=== PATIENT | male | born 2000 | race Caucasian/White ===

== ENCOUNTER 2024-07-22 16:30 | Inpatient (IN) ==
[2024-07-22] MEDS ORDERED: ROBAXIN PO PRN (17:02)
[2024-07-22] MEDS ORDERED: NS 250 ML IV 25 ML IV PRN (17:02)
[2024-07-22 17:35] LABS: BASOPHILS % (AUTO) 0.7 % (0.2-1.0); EOSINOPHILS # (AUTO) 0.2 x10^3/uL (0.0-0.2); EOSINOPHILS % (AUTO) 2.3 % (0.9-2.9); HEMATOCRIT 37.8 % (42.0-54.0); HEMOGLOBIN 12.5 g/dL (13.5-18.0); LYMPHOCYTES # (AUTO) 2.3 X10^3/uL (1.3-2.9); LYMPHOCYTES % (AUTO) 31.2 % (21.0-51.0); MEAN CORPUSCULAR HEMOGLOBIN 27.6 pg (27.0-34.0); MEAN CORPUSCULAR HGB CONC 33.1 g/dL (33.0-35.0); MEAN CORPUSCULAR VOLUME 83.4 fL (80.0-100.0); MEAN PLATELET VOLUME 6.5 fL (7.4-11.0); MONOCYTES # (AUTO) 0.7 x10^3/uL (0.3-0.8); MONOCYTES % (AUTO) 10.3 % (0.0-13.0); NEUTROPHILS % (AUTO) 55.5 % (42.0-75.0); PLATELET COUNT 276 X10^3/uL (150.0-450.0); RED BLOOD COUNT 4.54 X10^6/uL (4.7-6.0); RED CELL DISTRIBUTION WIDTH 14.8 % (11.6-16.5); WHITE BLOOD COUNT 7.3 X10^3/uL (3.6-10.0)
[2024-07-22 17:46] LABS: ALANINE AMINOTRANSFERASE 16 Units/L (12-78); ALBUMIN 3.5 g/dL (3.4-5.0); ALKALINE PHOSPHATASE 69 Units/L (46-116); ASPARTATE AMINO TRANSFERASE 16 Units/L (15-37); BLOOD UREA NITROGEN 9 mg/dL (7-18); CALCIUM 8.6 mg/dL (8.5-10.1); CARBON DIOXIDE 37.3 mmol/L (21-32); CHLORIDE 100 mmol/L (98-107); CREATININE 0.99 mg/dL (0.70-1.30); GLUCOSE 72 mg/dL (65-99); POTASSIUM 3.8 mmol/L (3.5-5.1); SODIUM 137 mmol/L (136-145); TOTAL PROTEIN 7.1 g/dL (6.4-8.2); eGFR NON BLACK RACES > 60 (>60)
[2024-07-22 18:16] VITALS: BMI 20.5
[2024-07-22] MEDS: ZOSYN VIAL 3.375 GRAMS 3.375 G in NS 100 ML IV 100 ML IV SCH (18:20)
[2024-07-22] MEDS: ZYVOX 600MG IV 600 MG/300 ML BAG IV SCH (20:30)
[2024-07-23] MEDS: NOZIN NASAL SANITIZER TP ONE (05:32)
[2024-07-23] MEDS: HIBICLENS WASH EXT ONE (05:32)
[2024-07-23 05:54] LABS: BASOPHILS # (AUTO) 0.1 X10^3/uL (0.0-0.1); BASOPHILS % (AUTO) 0.7 % (0.2-1.0); EOSINOPHILS # (AUTO) 0.2 x10^3/uL (0.0-0.2); EOSINOPHILS % (AUTO) 2.3 % (0.9-2.9); HEMATOCRIT 35.6 % (42.0-54.0); HEMOGLOBIN 11.8 g/dL (13.5-18.0); LYMPHOCYTES # (AUTO) 2.7 X10^3/uL (1.3-2.9); LYMPHOCYTES % (AUTO) 33.7 % (21.0-51.0); MEAN CORPUSCULAR HEMOGLOBIN 27.5 pg (27.0-34.0); MEAN CORPUSCULAR HGB CONC 33.2 g/dL (33.0-35.0); MEAN CORPUSCULAR VOLUME 82.7 fL (80.0-100.0); MEAN PLATELET VOLUME 7.1 fL (7.4-11.0); MONOCYTES # (AUTO) 0.8 x10^3/uL (0.3-0.8); MONOCYTES % (AUTO) 10.7 % (0.0-13.0); NEUTROPHILS # (AUTO) 4.1 x10^3/uL (2.2-4.8); NEUTROPHILS % (AUTO) 52.6 % (42.0-75.0); PLATELET COUNT 257 X10^3/uL (150.0-450.0); RED BLOOD COUNT 4.31 X10^6/uL (4.7-6.0); RED CELL DISTRIBUTION WIDTH 14.6 % (11.6-16.5); WHITE BLOOD COUNT 7.9 X10^3/uL (3.6-10.0)
[2024-07-23 06:15] LABS: ALANINE AMINOTRANSFERASE 22 Units/L (12-78); ALBUMIN 3.1 g/dL (3.4-5.0); ALKALINE PHOSPHATASE 60 Units/L (46-116); ASPARTATE AMINO TRANSFERASE 19 Units/L (15-37); BLOOD UREA NITROGEN 10 mg/dL (7-18); CALCIUM 8.8 mg/dL (8.5-10.1); CHLORIDE 101 mmol/L (98-107); COR CA(FOR HYPOALB) 9.5 mg/dL (8.5-10.1); CREATININE 1.03 mg/dL (0.70-1.30); GLUCOSE 100 mg/dL (65-99); SODIUM 135 mmol/L (136-145); TOTAL PROTEIN 6.3 g/dL (6.4-8.2); eGFR NON BLACK RACES > 60 (>60)
--- NOTE | 2024-07-23 06:56 | DR.CONSULT ---
CONSULT Consultation for Day of: Date: 07/23/24 Chief Complaint Chief Complaint: Foot Infection Allergies Allergies Allergy/AdvReac Type Severity Reaction Status Date / Time vancomycin AdvReac Verified 07/22/24 17:06 History of Present Illness History of Present Illness: Patient is well known to Dr. Padilla. He previously got an ORIF of a Calcaneal fracture with fusion of the STJ. He subsequently had a long-standing wound which was infected. He was admitted to the hospital for IV antibiotics. Today we will remove hardware and place antibiotic backfill in screw holes. Past Surgical History Surgical History: Other Social History Type of Tobacco Use: None How many years tobacco product used: 2 Alcohol Use: None Medications Home Medications: vancomycin Adverse Reaction (Verified 07/22/24 17:06) CONTINUE taking the following medications bupropion HCl 150 mg 24 hr tablet, extended release (Wellbutrin XL) 150 mg PO QAM 07/23/24 [History] methocarbamol 500 mg tablet 500 mg PO TID 07/23/24 [History] Review of Systems Constitutional: No Symptoms Reported Physical Exam Vital Signs: Vital Signs Temperature 98.1 F Temperature 98.2 F Pulse Rate [Brachial] 69 Pulse Rate [Brachial] 79 Respiratory Rate 21 Respiratory Rate 20 Blood Pressure [Right Arm] 91/59 Blood Pressure [Right Arm] 99/60 O2 Sat by Pulse Oximetry 98 O2 Sat by Pulse Oximetry 99 Cardiovascular: Other (Pulses are intact. ) Tenderness: Mild (Mild tender during examination. ) Musculoskeletal: Right and Foot (Open wound to proximal aspect of incision on lateral ankle/heel. Small amount of drainage. Brownish tinge. No malodor. Eyrthema on lateral aspect as well. ) Plan (1) Chronic multifocal osteomyelitis, right ankle and foot: Status: Acute Plan: - Currently NPO - Plan for hardware removal with backfill using antibiotic cement surgically today. - Will obtain cultures of infection. - NWB to RLE.
--- NOTE | 2024-07-23 07:40 | RAD ---
EXAM: FOOT, RIGHT HISTORY: RIGHT FOOT INFECTION ; RIGHT FOOT SURG COMPARISON: CT right lower extremity 05/07/2024 TECHNIQUE: Three views FINDINGS: There is diffuse osteopenia. There is previous fixation of a comminuted posttraumatic closed calcane al fracture. There is some sclerosis about the fracture site. No osteolytic or osteoblastic lesions are noted. There is some bony destructive change along the posterolateral calcaneus which may repre sent osteomyelitis. No subcutaneous emphysema. Soft tissue swelling IMPRESSION: There is some bony destructive change along the posterolateral calcaneus which may represent osteomye litis as described on CT lower extremity 05/07/2024. Soft tissue swelling. No subcutaneous emphysema. Previous fixation of the calcaneus. No gross lucency to suggest hardware complication THIS IS AN ELECTRONICALLY VERIFIED FINAL REPORT 07/23/2024 7:37 AM - Electronically signed by Rafi Jenkins MD
[2024-07-23] MEDS: LR 1,000 ML IV 1,000 ML IV ONE ×2 (07:47→11:10)
--- NOTE | 2024-07-23 08:42 | DR.PREOPN ---
Pre-op Note Pre-Op Diagnosis: osteomyelitis of the right calc Planned Procedure: removal abx cement. removal of hardware, insertion of abx sparklers for screw tracts, splint Laboratory and Diagnositics 07/23/24 05:10 07/23/24 05:10 Anesthesia Anesthesia to see patient: Yes Blood Type and Screen/Crossmatch Ordered: No Summary: I have reviewed the procedure, it benefits and potential risks and complications with the patient and his/her questions have been answered. Patient desires to proceed with procedure. Consent signed and on chart. we discussed likely discharge today. he has already done IV abx for >6 weeks at SNF and with continued wound. planning removal. will get CT post op today as patient was supposed to get disc and report from [facility] as this has been requested multiple times from office and they did not send. he did not get this for me therefore it is medically necessary to get CT while he is inpatient post op after sparkler placement to see if STJ healed or if will need further attention down road with healing. discussed still may need amputation and he is not clear of that at this time. he understands the severity of his issues and wound and complicating factors associated with this.
[2024-07-23] MEDS: ZOFRAN INJ 4 MG VIAL ONE (09:03)
[2024-07-23] MEDS: OFIRMEV IV 1000 MG VIAL 1,000 MG/100 ML VIAL IV ONE (09:03)
[2024-07-23] MEDS ORDERED: ULTANE GAS IN ONE (09:03)
[2024-07-23] MEDS: VERSED ONE (09:03)
[2024-07-23] MEDS: FENTANYL VIAL INJ 100 mcg ONE (09:03)
[2024-07-23] MEDS: PEPCID 20 MG VIAL ONE (09:03)
[2024-07-23] MEDS: DIPRIVAN VIAL 20 ML ONE (09:03)
[2024-07-23] MEDS ORDERED: KETAMINE HCL ONE (09:03)
[2024-07-23] MEDS: TORADOL 30 MG VIAL ONE (09:03)
[2024-07-23] MEDS: XYLOCAINE 2 % (PLAIN) ONE (09:05)
[2024-07-23] MEDS: EPHEDRINE SULFATE INJ ONE (09:17)
[2024-07-23] MEDS: TOBRAMYCIN SULFATE ONE (09:25)
[2024-07-23] MEDS: MARCAINE 0.25% INJ ONE (09:25)
[2024-07-23] MEDS ORDERED: BENADRYL INJ 50 MG VIAL IVP PRN (09:44)
[2024-07-23] MEDS ORDERED: ZOFRAN INJ 4 MG VIAL IVP PRN (09:44)
[2024-07-23] MEDS: DILAUDID INJ IVP PRN (10:38)
[2024-07-23] MEDS: WELLBUTRIN XL 150 MG (DAILY) PO SCH (10:39)
[2024-07-23] MEDS: DILAUDID INJ ONE (10:45)
--- NOTE | 2024-07-23 12:37 | CT ---
EXAMINATION:LOWER EXT W/OHISTORY:check healing of STJ and fractures; .COMPARISON STUDY:Right lower extremity CT 05/07/2024TECHNIQUE:Spiral CT scan of the was performed without IV contrast. Sagittal and coronal reformatted images were obtained. Volume rendering was performed on a workstation. Diagnostic sensitivity limited by lack of IV contrast.FINDINGS:Osteopenia is present.Joint spaces are preserved.There is fixation of posttraumatic closed comminuted fracture of the calcaneus. There is involvement of the anterior and posterior facets and sustentaculum maribell. Alignment is unchanged. There is some bony bridging and healing. There is minimal fusion of the subtalar joint.Again noted is deep and superficial cellulitis in the posterior soft tissues. Laterally there is an abscess measuring 3.36 x 1.56 cm. Medially there are some small abscesses measuring up to 0.88 x 0.63 cm. There is further bony destruction along the lateral aspect of the calcaneus suggesting chronic osteomyelitis.There are no soft tissue masses.Muscle and fat planes are maintained. No new fracture or radiopaque foreign bodyIMPRESSION:There is deep and superficial cellulitis in the posterior soft tissues. There is an abscess laterally and medially as described above. These contain gas.There is chronic osteomyelitis along the lateral posterior calcaneus. There is more bony destruction compared to the prior study.ORIF of comminuted displaced posttraumatic closed fracture through the calcaneus. There is some bony bridging and healingThe above CT scan was done with automated exposure and the mA and kvP was adjusted to obtain quality images according to patient size.THIS IS AN ELECTRONICALLY VERIFIED FINAL [id number]/23/2024 12:33 PM - Electronically signed by Rafi Jenkins MD
[2024-07-23] MEDS: NORCO 10/325 TAB PO PRN (18:37)
[2024-07-24] MEDS: MORPHINE SULFATE INJ 2 MG INJ IVP PRN (01:07)
[2024-07-24 04:39] VITALS: O2SAT 98
--- NOTE | 2024-07-24 08:15 | NOTE.SOAP ---
Soap Note Note for Day of Date of Exam: 07/24/24 Subjective Data Subjective Data: Patient is POD#1 hardware removal, insertion of antibiotic elluding device, delayed closure of wound right foot. Patient denies any nausea, vomiting, fevers, chills, shortness of breath, chest, or calf pain. He admits to pain in the right foot and has had trouble with the foot through out the night. He will not let me change the dressing today due to pain in the right foot. Objective Data Objective Data: Right Foot: Dressing clean, dry, and intact. No strikethrough noted. CFT WNL to all digits. No erythema proximal to dressing. No signs or symptoms concerning for DVT or PE. Assessment Assessment: Osteomyelitis, right foot Plan Plan: - Rx for Bactrim DS in chart. - Rx for Pain medication in chart. - NWB to RLE. - Rx for Lovenox in chart. - Will follow cultures currently no organisms. - CT showing some bridging across STJ. - Rx for ASA 325 BID in chart. - Okay for discharge from Podiatry standpoint.
[2024-07-24 09:28] VITALS: RESP 18
[2024-07-24 09:56] VITALS: BP 92/32; PULSE 80; TEMP 98.5
== END 2024-07-24 11:40 | disposition home or self-care (01) | DRG 496 ==
LOC: MED/SURG 16:35
PROVIDERS: ADMIT Obstetrics & Gynecology Obstetrics; ATTEND Obstetrics & Gynecology Obstetrics
PROC: HARDREM (ICD-10-PCS; 2024-07-23 16:40)
DX: S91.301A Unspecified open wound, right foot, initial encounter; L03.115 Cellulitis of right lower limb; M86.371 Chronic multifocal osteomyelitis, right ankle and foot; Z65.8 Other specified problems related to psychosocial circumstances; B96.5 Pseudomonas (aeruginosa) (mallei) (pseudomallei) as the cause of diseases classified elsewhere; X58.XXXA Exposure to other specified factors, initial encounter; Z59.86 Financial insecurity